=== PATIENT | male | born 1995 | race Caucasian/White ===

== ENCOUNTER 2022-04-15 18:09 | Emergency (ER) | payer OTHER ==
[2022-04-15 18:50] VITALS: BP 136/69; PULSE 83; RESP 18; TEMP 98; BMI 28.8
[2022-04-15] MEDS ORDERED: KETOROLAC TROMETHAMINE 30 MG/1 ML VIAL IM ONE (19:44)
[2022-04-15] MEDS ORDERED: KETOROLAC TROMETHAMINE 30 MG/1 ML VIAL ONE (19:48)
== END 2022-04-15 20:27 | disposition home or self-care (01) ==
LOC: JERFT 18:09
PROC: 3E0233Z Introduction of Anti-inflammatory into Muscle, Percutaneous Approach (ICD-10-PCS; principal; 2022-04-15)
DX: S46.012A Strain of muscle(s) and tendon(s) of the rotator cuff of left shoulder, initial encounter (principal); W18.49XA Other slipping, tripping and stumbling without falling, initial encounter; X50.0XXA Overexertion from strenuous movement or load, initial encounter
CPT/HCPCS: 73030-TC-LT-FY; 99284-25